=== PATIENT | female | born 2000 | race Caucasian/White ===

== ENCOUNTER 2020-02-28 16:04 | Inpatient (IN) ==
[2020-02-28] MEDS ORDERED: Metoclopramide 10 MG/2 ML VIAL IVP PRN (17:12)
[2020-02-28] MEDS ORDERED: Naloxone 0.4 MG/ML INJ IVP PRN (17:12)
[2020-02-28] MEDS ORDERED: Famotidine 20 MG/2 ML VIAL IVP PRN (17:12)
[2020-02-28] MEDS ORDERED: EPHEDrine 50 MG/ML VIAL IVP PRN (17:33)
[2020-02-28 18:35] LABS: Basophils % 0.2 %; Eosinophils # 0.2 K/mcL (0.0-0.6); Eosinophils % 1.3 %; Hemoglobin 11.9 g/dL (11.5-15.4); Immature Granulocytes % 0.2 % (0-4); Lymphocytes # 2.1 K/mcL (0.6-4.6); Lymphocytes % 16.5 %; Mean Corpuscular Hemoglobin 29.9 pg (28.0-33.3); Mean Corpuscular Volume 85.4 fL (83.0-100.0); Mean Platelet Volume 11.8 fL (9.4-12.4); Monocytes # 0.5 K/mcL (0.0-1.3); Monocytes % 4.1 %; Neutrophils # 9.8 K/mcL (1.6-8.9); Platelet Count 229 K/mcL (140-400); Red Blood Count 3.98 M/mcL (3.82-4.97); Segmented Neutrophils % 77.7 %; White Blood Count 12.6 K/mcL (4.3-11.1)
[2020-02-28 18:37] LABS: Amphetamine Screen,Urine Negative ng/mL (Cutoff=1000); Barbiturate Screen,Urine Negative ng/mL (Cutoff=200); Benzodiazepines Screen,Urine Negative ng/mL (Cutoff=200); Cannabinoid Screen,Urine Negative ng/mL (Cutoff = 50); Cocaine Screen,Urine Negative ng/mL (Cutoff= 300); Opiate Screen,Urine Negative ng/mL (Cutoff=300); Phencyclidine Screen,Urine Negative ng/mL (Cutoff=25)
[2020-02-28] MEDS: Ringers Solution, Lactated 1,000 ML ONE (18:59)
[2020-02-28] MEDS ORDERED: Oxytocin 20 units/ LR 1000 mL 20 UNIT/1,000 ML BAG IVC SCH (19:30)
[2020-02-28] MEDS ORDERED: Ringers Solution, Lactated 1,000 ML ONE (21:41)
[2020-02-28] MEDS ORDERED: Ringers Solution, Lactated 1,000 ML IVC SCH (22:00)
[2020-02-28] MEDS: Epidural Premix (fent/bupiv) 110 ML EP SCH (22:50)
[2020-02-29] MEDS: Epidural Premix (fent/bupiv) 110 ML EP SCH ×3 (04:33→16:37)
[2020-02-29] MEDS ORDERED: *HR* FentaNYL (PF) 100 MCG/2 ML VIAL ONE (05:15)
[2020-02-29] MEDS ORDERED: *HR* Buprenorphine HCl 8 MG TAB.SUBL SL SCH (09:00)
[2020-02-29] MEDS: Ringers Solution, Lactated 1,000 ML ONE (10:35)
[2020-02-29] MEDS ORDERED: Ropivacaine/PF 0.2% 20 ML VIAL ONE (14:04)
[2020-02-29] MEDS ORDERED: Rho Immune Globulin 1,500 UNIT SYRINGE IM PRN (22:21)
[2020-02-29] MEDS ORDERED: Measles/Mumps/Rubella Vacc 0.5 ML VIAL SQ PRN (22:21)
[2020-02-29] MEDS ORDERED: Acetaminophen 325 MG TABLET PO PRN (22:21)
[2020-02-29] MEDS ORDERED: Benzocaine/Menthol 56 GM AEROSOL SPRAY TP PRN (22:21)
[2020-02-29] MEDS ORDERED: Lanolin 7 G OINT...G. TP PRN (22:21)
[2020-02-29] MEDS ORDERED: Oxytocin 20 units/ LR 1000 mL 20 UNIT/1,000 ML BAG IVC SCH (22:21)
[2020-02-29] MEDS: Ibuprofen 600 MG TABLET PO PRN (23:37)
[2020-03-01] MEDS: Nicotine 14 MG PATCH.TD24 TD SCH (05:55)
[2020-03-01 06:34] LABS: Basophils % 0.2 %; Eosinophils % 0.3 %; Hematocrit 30.3 % (35.3-44.9); Hemoglobin 10.5 g/dL (11.5-15.4); Immature Granulocytes % 0.4 % (0-4); Lymphocytes # 2.4 K/mcL (0.6-4.6); Lymphocytes % 15.7 %; Mean Corpuscular HGB Conc 34.7 g/dL (31.6-35.5); Mean Corpuscular Volume 86.6 fL (83.0-100.0); Mean Platelet Volume 11.1 fL (9.4-12.4); Monocytes # 1.2 K/mcL (0.0-1.3); Monocytes % 8.1 %; Neutrophils # 11.3 K/mcL (1.6-8.9); Platelet Count 208 K/mcL (140-400); Red Cell Distribution Width 13.1 % (11.5-14.5); Segmented Neutrophils % 75.3 %
[2020-03-01] MEDS ORDERED: SUBOXONE SL SCH (09:00)
[2020-03-01] MEDS: Ibuprofen 600 MG TABLET PO PRN ×2 (09:26→20:21)
[2020-03-01] MEDS: Prenatal Vit/FA 1 EACH TABLET PO SCH (09:27)
[2020-03-01] MEDS ORDERED: *HR* Buprenorphine HCl 2 MG SUBLINGUAL TABLET SL STA (13:28)
[2020-03-02] MEDS: Prenatal Vit/FA 1 EACH TABLET PO SCH (09:07)
[2020-03-02] MEDS: Ibuprofen 600 MG TABLET PO PRN (09:08)
[2020-03-02] MEDS: *HR* Buprenorphine HCl 8 MG TAB.SUBL SL SCH (09:27)
[2020-03-02] MEDS: Nicotine 14 MG PATCH.TD24 TD SCH (21:08)
[2020-03-03 07:27] VITALS: BP 154/84
[2020-03-03] MEDS: Prenatal Vit/FA 1 EACH TABLET PO SCH (09:01)
[2020-03-03] MEDS: *HR* Buprenorphine HCl 8 MG TAB.SUBL SL SCH (09:02)
== END 2020-03-03 10:06 | disposition home or self-care (01) | DRG 560 ==
LOC: 1NENULAB 16:04 → 1NENUOBS 02-29 21:50
PROVIDERS: ADMIT Obstetrics & Gynecology; ATTEND Obstetrics & Gynecology